=== PATIENT | male | born 1955 | race Caucasian/White ===

== ENCOUNTER → 2016-12-14 | Outpatient (CLI) | payer BC, OTHER ==
[2016-12-14 08:48] LABS: ASPARTATE AMINO TRANSFERASE 35 IU/L (21-57); BILIRUBIN,TOTAL 1.4 mg/dL (0.3-1.2); BLOOD UREA NITROGEN 12 mg/dL (7-22); BUN/CREATININE RATIO 13.33 (6-20); CALCIUM 9.4 mg/dL (8.7-10.7); CHLORIDE 94 meq/L (98-112); CREATININE 0.9 mg/dL (0.70-1.50); EST GLOMERULAR FILTRATION > 60 (>60 ml/min/1.73m(2)); GLUCOSE 108 mg/dL (78-110); HDL CHOLESTEROL 61 mg/dL (40-150); SODIUM 134 meq/L (135-145); TRIGLYCERIDES 140 mg/dL (44-200)
[2016-12-14 10:22] LABS: FREE T4 (FREE THYROXINE) 1.43 ng/dL (0.93-1.71)
== END ==
LOC: LAB 08:09
PROVIDERS: ATTEND Nurse Practitioner Family
DX: E03.9 Hypothyroidism, unspecified (principal); I10 Essential (primary) hypertension; E78.5 Hyperlipidemia, unspecified; I25.10 Atherosclerotic heart disease of native coronary artery without angina pectoris
CPT/HCPCS: 36415; 80048; 82247; 82465; 82550; 82977; 83718; 84075; 84439; 84443; 84450; 84460; 84478

== ENCOUNTER → 2017-05-03 | Outpatient (CLI) | payer BC, OTHER ==
[2017-05-03 12:50] LABS: BILIRUBIN,URINE NEGATIVE (NEG); CLARITY,URINE CLEAR (CLEAR); COLOR,URINE YELLOW; GLUCOSE, URINE (UA) NEGATIVE (NEG); NITRATE,URINE NEGATIVE (NEG); OCCULT BLOOD,URINE Trace-intact (NEG); PROTEIN,URINE NEGATIVE (NEG); UROBILINOGEN,URINE 0.2 EU/dL (0.2)
[2017-05-03 13:00] LABS: SQUAMOUS EPITHELIAL CELL,UR RARE; URINE SAMPLE TYPE VOIDED SPECIMEN
[2017-05-03 13:04] LABS: BLOOD UREA NITROGEN 12 mg/dL (7-22); BUN/CREATININE RATIO 13.33 (6-20); CALCIUM 9.6 mg/dL (8.7-10.7); EST GLOMERULAR FILTRATION > 60 (>60 ml/min/1.73m(2))
[2017-05-03 14:19] LABS: HEMATOCRIT 47.6 % (42.0-52.0); HEMOGLOBIN 16.7 g/dL (14.0-18.0); MEAN CORPUSCULAR HEMOGLOBIN 34.4 PG (27-31); MEAN CORPUSCULAR HGB CONC 35.1 g/dL (33-37); MEAN CORPUSCULAR VOLUME 97.9 FL (80-90); RED BLOOD COUNT 4.86 10^6/uL (4.70-6.10)
[2017-05-03 14:20] LABS: BASOPHILS # (AUTO) 0.03 10*3/UL; BASOPHILS % (AUTO) 0.4 % (0-1); EOSINOPHILS # (AUTO) 0.08 10*3/UL; LYMPHOCYTES # (AUTO) 2.04 10*3/uL; MEAN PLATELET VOLUME 9.3 FL (7.4-12.2); MONOCYTES # (AUTO) 0.56 10*3/UL (0.3-0.8); MONOCYTES % (AUTO) 7.3 % (5-15); NEUTROPHILS # (AUTO) 4.91 10*3/UL; NEUTROPHILS % (AUTO) 64.3 % (50-80); PLATELET MORPHOLOGY COMMENT NORMAL MORPHOLOGY (NORM); RBC MORPHOLOGY COMMENT NORMAL MORPHOLOGY (NORM); WBC MORPHOLOGY COMMENT NORMAL MORPHOLOGY (NORM)
--- NOTE | 2017-05-03 15:03 | DI ---
HISTORY: Right lower quadrant abdominal pain. TECHNIQUE: Contiguous axial enhanced images of the abdomen and pelvis were obtained from the lung ba ses through the ischial tuberosities. The images were then submitted for interpretation. FINDINGS: The heart size is normal and the lung bases are clear. The liver and spleen are normal in size and contour and demonstrate no focal abnormalities. The gall bladder is unremarkable and no intra or extrahepatic biliary ductal dilatation is identified. The pancreas and adrenal glands are normal. The kidneys are in anatomic position. There is no evidence of renal calculi, hydronephrosis or solid renal masses. The visualized bowel, mesentery and omentum are unremarkable with no evidence of obstruction or perfo ration. Appendix appears normal. There is an age indeterminate compression fracture in T10. IMPRESSION: 1. There is an age indeterminate compression fracture in T10. Otherwise unremarkable CT examination o f the abdomen and pelvis.
== END ==
LOC: LAB 12:41
PROVIDERS: ATTEND Nurse Practitioner Family
DX: R10.31 Right lower quadrant pain (principal); R10.33 Periumbilical pain; R11.0 Nausea; R19.7 Diarrhea, unspecified
CPT/HCPCS: 36415; 74177; 80048; 81001; 85025

== ENCOUNTER → 2017-05-04 | Outpatient (CLI) | payer BC, OTHER | LOC: LAB 08:38 | PROVIDERS: ATTEND Nurse Practitioner Family | DX: R10.31 Right lower quadrant pain (principal); R19.7 Diarrhea, unspecified; R11.0 Nausea; F17.200 Nicotine dependence, unspecified, uncomplicated | CPT/HCPCS: 82272; 87046; 87205; 87328; 87329 ==

== ENCOUNTER → 2017-05-05 | Outpatient (CLI) | payer BC, OTHER | LOC: LAB 07:38 | PROVIDERS: ATTEND Nurse Practitioner Family | DX: R10.31 Right lower quadrant pain (principal); R19.7 Diarrhea, unspecified | CPT/HCPCS: 87493 ==

== ENCOUNTER 2017-05-16 07:54 | Day surgery (SDC) | payer BC, OTHER ==
[~2017-05-16 07:54] MED LIST: LIDOCAINE 2% VISCOUS(20 MG/1 ML) - 15 ML UD CUP PO ONE; LIDOCAINE HCL/PF 2% (20 MG/ML) - 5 ML SYRINGE ONE; LIDOCAINE W/ SODIUM BICARB 0.5 ML SYR ONE; Lactated Ringers 1,000 ML PRIMARY IV ONE; MIDAZOLAM 5 MG/1 ML ONE; fentaNYL Inj 100 MCG/2 ML VIAL ONE
--- NOTE | 2017-05-16 09:35 | GEN.OPNOTE ---
EGD / Colonoscopy Report Surgery Date: 05/16/17 Preoperative Diagnosis: Nausea. Lower quadrant abdominal pain. Personal history of colon polyps. Hemoccult positive stool. Postoperative Diagnosis: Same. Gastritis. Multiple colon polyps. Procedure: #1 esophagogastroduodenoscopy with biopsy. #2 complete colonoscopy with biopsy and destruction of multiple polyps. Surgeon: Loyd Irwin MD Anesthesia Provider: Anish Villalobos CRNA Anesthesia Type: MAC Indications: See preoperative diagnosis. EGD Findings: Esophagus: [normal] GE Junction : [Mild inflammation] Fundus : [Normal] Body : [Abnormal mucosa consistent with gastritis.] Prepyloric : [Inflammatory changes.] Small Intestine : [Duodenitis.] A lubricated flexible upper endoscope was inserted and passed through the esophagus and stomach into the duodenum. The duodenum and duodenal bulb showed evidence of duodenitis. Multiple biopsies were taken. Hemostasis was assured. The pyloric channel was patent. The scope was withdrawn into the distal stomach where biopsies were taken at and near the pylorus. Hemostasis was assured. Biopsies of the body of the stomach were taken as well for evidence of chronic gastritis. Hemostasis was assured. The scope was withdrawn into the distal esophagus. Multiple biopsies were taken. Hemostasis was assured. The scope was withdrawn through the remainder of a normal-appearing esophagus and brought the hypopharynx under suction completing that portion of the procedure. Colonoscopy Findings: Prep : [Good] Cecum : [Normal] Ascending : [Small polyp biopsied and destroyed otherwise normal] Transverse : [Normal] Sigmoid : [ A few diverticuli. Polyp at 45 cm biopsied and destroyed.] Rectum : [2 polyps biopsied and destroyed.] Digital Rectal Exam : [No significant perianal pathology. Prostate of normal size and consistency.] A lubricated flexible colonoscope was inserted and passed to the blind end of the cecum. The pamunkey's foot and ileocecal valve were clearly seen. Air was aspirated as the scope was withdrawn. There was scattered sigmoid diverticuli and several polyps. Polyps were removed in the right colon, at 45 cm, and 2 in the rectum, otherwise the colonoscopy was normal. The scope was withdrawn completing the procedure. Patient tolerated all aspects of the procedure well without complication he was taken to outpatient surgery in stable condition. Follow-up will be with my office on an as-needed basis. We will call the biopsy results when available. We'll start the patient on pantoprazole for what appeared to be duodenitis and gastritis pending the biopsies.
[2017-05-16 12:13] VITALS: TEMP 97.2
[2017-05-16 12:17] VITALS: RESP 16
== END 2017-05-16 10:00 | disposition home or self-care (01) ==
LOC: SDSC 07:54
PROVIDERS: ATTEND Surgery
DX: R10.31 Right lower quadrant pain (principal); Z86.010 Personal history of colon polyps; R11.0 Nausea; K29.70 Gastritis, unspecified, without bleeding; K63.5 Polyp of colon
CPT/HCPCS: 43239; 45380; J2250; J2704; J3010; J7120